=== PATIENT | female | born 1995 | race Hispanic/Latino ===

== ENCOUNTER → 2024-05-03 | Emergency (ER) | payer OTHER ==
[~2024-05-03] VITALS: Ht 162.6 cm; Wt 95.3 kg
[~2024-05-03] MED LIST: BACL15TA PO; IOHEXOL 350 MG/ML 100ML INFUS..BTL IV ONE; KETO10TA2 PO
[2024-05-03 15:58] VITALS: BP 132/79; PULSE 122; RESP 18
[2024-05-03] MEDS: MORPHINE 2 MG SYG IVP ONE (17:03)
[2024-05-03] MEDS: ONDANSETRON 4MG INJ IVP ONE (17:03)
[2024-05-03 17:17] LABS: BASOPHILS # (AUTO) 0.02 K/uL (0.00-0.20); BASOPHILS % (AUTO) 0.2 % (0.0-5.0); EOSINOPHILS # (AUTO) 0.06 K/uL (0.00-0.70); EOSINOPHILS % (AUTO) 0.5 % (0.0-8.0); HEMATOCRIT 35.2 % (36-48); IMMATURE GRANULOCYTE ABSOLUTE 0.02 K/uL (0-1); LYMPHOCYTES # (AUTO) 2.3 K/uL (1.0-4.8); LYMPHOCYTES % (AUTO) 19.6 % (21.0-51.0); MEAN CORPUSCULAR HEMOGLOBIN 24.9 pg (27.0-33.0); MEAN CORPUSCULAR HGB CONC 32.4 g/dL (32.0-36.0); MONOCYTES # (AUTO) 0.9 K/uL (0.1-1.0); MONOCYTES % (AUTO) 7.2 % (3.0-13.0); NEUTROPHILS # (AUTO) 8.5 K/uL (1.8-7.7); NEUTROPHILS % (AUTO) 72.3 % (40.0-77.0); PLATELET COUNT (AUTO) 456 K/uL (130-400); RED BLOOD CELL COUNT(AUTO) 4.57 MIL/uL (4.00-5.50); RED CELL DISTRIBUTION WIDTH 13.5 % (11.0-15.5); WHITE BLOOD COUNT (AUTO) 11.8 K/uL (4.8-10.8)
[2024-05-03 17:23] LABS: CREATININE 0.7 mg/dL (0.5-1.0); POTASSIUM 3.3 mmol/L (3.5-5.1)
== END ==
LOC: EDH 15:56
DX: S09.8XXA Other specified injuries of head, initial encounter (principal); M25.512 Pain in left shoulder; M25.561 Pain in right knee; M79.641 Pain in right hand; R10.30 Lower abdominal pain, unspecified; M54.2 Cervicalgia; R10.2 Pelvic and perineal pain; V49.9XXA Car occupant (driver) (passenger) injured in unspecified traffic accident, initial encounter; Y93.89 Activity, other specified; Y92.488 Other paved roadways as the place of occurrence of the external cause; Y99.8 Other external cause status
CPT/HCPCS: 99285; 70450; 96374; 96375; 80048; 84703; 84702; 85025; 36415; 73130; 73562; 73030; 72125; 71260; 74177; J2270; J2405; Q9967

== ENCOUNTER 2024-05-14 08:32 | Emergency (ER) | payer OTHER ==
[~2024-05-14] VITALS: Ht 162.6 cm; Wt 90.7 kg
[~2024-05-14 08:32] MED LIST changes: -IOHEXOL 350 MG/ML 100ML INFUS..BTL IV ONE
[2024-05-14 11:19] VITALS: BP 131/78; PULSE 64; RESP 18; TEMP 97.7; O2SAT 98
== END 2024-05-14 11:25 | disposition home or self-care (01) ==
LOC: EDH 08:32
DX: S66.212A Strain of extensor muscle, fascia and tendon of left thumb at wrist and hand level, initial encounter (principal); S66.311A Strain of extensor muscle, fascia and tendon of left index finger at wrist and hand level, initial encounter; Z79.899 Other long term (current) drug therapy; V49.9XXA Car occupant (driver) (passenger) injured in unspecified traffic accident, initial encounter; Y93.89 Activity, other specified; Y92.488 Other paved roadways as the place of occurrence of the external cause; Y99.8 Other external cause status
CPT/HCPCS: 29125; 29130; 73100